=== PATIENT | male | born 1985 | race Caucasian/White ===

== ENCOUNTER 2019-09-26 14:51 | Emergency (ER) | payer SELFPAY ==
[2019-09-26 15:00] VITALS: BP 177/101; PULSE 93; RESP 17; TEMP 36.7; O2SAT 100; BMI 40.4
--- NOTE | 2019-09-26 15:04 | ED_ITS ---
HPI - Skin/Abscess/Foreign Bdy General: Chief complaint: Skin/Abscess/Foreign Body Stated complaint: wound on neck Time Seen by Provider: 09/26/19 15:04 History of Present Illness: HPI narrative: Patient comes to the ED with painful lesion on back of neck. Patient says 5 days ago there was a small pimple-like lesion on the back of his neck and he popped it. Ever since prompted 5 days ago he has had increase swelling and tenderness over the skin. It is very painful. Patient says a little bit has drained out and it was just white. Denies any fever, chills, nausea, vomiting. Patient has no past medical history of MRSA or staph infection. I asked patient about his last tetanus shot and he refuses to get tetanus shots. Associated symptoms: Deny chills, fever(s), nausea or vomiting Review of Systems Const: Denies: fever(s), chills or fatigue Eyes: Denies: change in vision or eye discomfort ENMT: Denies: throat pain, odynophagia, nasal discharge or nasal congestion Card: Denies: chest pain, palpitations, edema, swelling of feet/ankles, dyspnea on exertion or orthopnea Resp: Denies: dyspnea, productive cough or non-productive cough GI: Denies: abdominal pain, nausea, vomiting, diarrhea, constipation or hemato chezia : Denies: flank pain, difficulty urinating, dysuria or hematuria Musc: Denies: neck pain, back pain or extremity swelling Skin/Breast: Reports: new lesions; Denies: rash Neuro: Denies: headache(s), numbness in extremities or weakness in extremities PFS ED PFSH: Social History Smoking and tobacco status: never smoked Physical Exam Const: COMMON NORMALS: patient oriented x3 and alert GENERAL APPEARANCE: cooperative; not comfortable (pt uncomfortable due to abscess pain) HENMT: COMMON NORMALS: normocephalic HEAD & SCALP: normocephalic MOUTH: Normal oral and palatal mucosa present THROAT: posterior oropharynx normal and uvula midline Neck/C-Spine: COMMON NORMALS: supple GENERAL: Yes normal visual inspection Resp: COMMON NORMALS: normal respiratory effort, No retractions, No use of accessory muscles and clear to auscultation bilaterally AUSCULTATION: clear to auscultation bilaterally Cardio: COMMON NORMALS: regular rate, regular rhythm, S1 normal heart sound present, S2 normal heart sound present, No gallops present (Cardio), No clicks present (Cardio), No murmurs present (Cardio) and Peripheral pulses 2+ throughout RATE: regular rate RHYTHM: regular rhythm HEART SOUNDS: S1 normal heart sound present and S2 normal heart sound present PERIPHERAL PULSES: Peripheral pulses 2+ throughout GI: COMMON NORMALS: Normal to inspection, nondistended, normoactive bowel sounds present, Soft to palpation, non-tender and no masses PALPATION: Yes Soft to palpation : COMMON NORMALS: Yes no CVA tenderness BLADDER/KIDNEY EXAM: Yes no CVA tenderness Back/Pelvis: COMMON NORMALS: no CVA tenderness Extremity: COMMON NORMALS: normal to inspection Neuro: COMMON NORMALS: patient oriented x3 and moves all extremities SENSORIUM/ORIENTATION: Yes alert Skin: LESIONS: lesion noted posterior neck Lesion type: Yes nodule and Yes pustule Lesion size (cm): 5 Lesion color: Yes white (white pustule head) and Yes surrounding erythema Lesion consistency: Yes fluctuent, Yes firm and Yes indurated (some induration around abscess palpated) Lesion surface: Yes raised, Yes pointed, Yes draining and Yes warm Lesion border: Yes raised and Yes surroun ding erythema Lesion tenderness: Yes moderate Lesion finding consistent with: Yes other (abscess) Procedures Abscess I/D Site: neck (posterior) Sedation/analgesia: other (morphine) Local Anesthetic: lidocaine 1% and with epi Amount of anesthesia used (mL): 10 Technique: other (incision with 10 blade) Amount of fluid expressed (mL): 3 Irrigation: No Packing used?: none Course Vital Signs: Vital signs: Vital Signs Temperature 98.1 F 09/26/19 15:00 Pulse Rate 91 09/26/19 17:45 Respiratory Rate 16 09/26/19 17:45 Blood Pressure 167/108 09/26/19 17:45 Pulse Oximetry 97 09/26/19 17:45 MDM - Skin/Abscess/Foreign Bdy MDM Narrative: Medical decision making narrative: Patient is a 34-year-old male who comes to the ED with abscess on posterior neck. Abscess is about 5 cm in diameter and has erythema warmth and white pustule head. I performed an I&D and drained about 3 mL of thick, malodorous white/yellow purulent drainage. Abscess culture was sent to lab and is pending results. Patient was given Bactrim while here in the ED. Patient was discharged with a prescription for Bactrim as well and told to return to PCP, urgent care or the ED in 3 to 5 days to reevaluate abscess. Patient understood and agreed with plan. Lab Data: Attestation: I reviewed the patient's lab results. Discharge Plan Discharge Patient Disposition: Home, Self-Care Clinical Impression: Abscess of skin or subcutaneous tissue Qualifiers: Site of cutaneous abscess: neck Qualified Code(s): L02.11 - Cutaneous abscess of neck Condition: Stable Prescriptions: New Bactrim DS 800-160 mg tablet 1 tab PO BID 10 Days Qty: 20 RF: 0 No Action No Known Home Medications RF: 0 Discharge Orders: Discharge Order (Routine); Ordered 09/26/19 Ordered By: Marco Rodriguez Discharge Diet: Regular Discharge Activity: Resume usual activity Patient Instructions: Abscess Incision and Drainage (ED), Abscess (ED) Activity Restrictions/Additional Instructions: Return to ED or urgent care for reevaluation in the next 3 to 5 days. Take full course of antibiotics as prescribed. Can take Tylenol or ibuprofen for any pain or fevers. Discharge Date/Time: 09/26/19 17:45 Coding Level of Care Code ED [employer] for Maryjane Rowell Exam Comprehensive
[2019-09-26] MEDS: HYDROcodone-acetaminophen 7.5-325 mg Tablet 1 TAB PO ×2 (16:14→17:37)
[2019-09-26] MEDS: sulfamethoxazole-trimeth DS 160-800 mg Tablet 1 TAB PO (16:14)
[2019-09-26 16:15] VITALS: RESP 18
[2019-09-26] MEDS: morphine 4 mg/mL SDV 1 mL IM (16:15)
[2019-09-26 17:45] VITALS: BP 167/108; PULSE 91; RESP 16; O2SAT 97
== END 2019-09-26 17:45 | disposition home or self-care (01) ==
PROVIDERS: Emergency Provider Physician Assistant
DX: L02.11 Cutaneous abscess of neck (principal)
CPT/HCPCS: 10060; 12345; 87070; 87075; 87077; 87186; 87205; 96372; 99282; 99283; J2001; J2270